=== PATIENT | female | born 1960 | race Caucasian/White ===

== ENCOUNTER → 2018-10-07 | Outpatient (CLI) | payer OTHER ==
[~2018-10-07] MED LIST: ASPIRIN EC81 MG PO; FLUOXETINE HCL20 M1 PO; LEVOTHROXINE PO; LISINOPRIL10 MG PO; METFORMIN HCL500 MG PO; PHILLIPS STOOL SOFT; [UNRECOGNIZED DRUG - OTHER]; percocet
== END ==
LOC: MAMMO 09:36
PROVIDERS: ATTEND Internal Medicine
DX: Z12.31 Encounter for screening mammogram for malignant neoplasm of breast (principal)
CPT/HCPCS: 77067

== ENCOUNTER → 2020-02-29 | Outpatient (CLI) | payer OTHER ==
--- NOTE | 2020-02-29 13:41 | Diagnostic Imaging Report ---
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 DISCUSSION: Sacrum is partially obscured by overlying stool/bowel gas on AP view which partially limits evaluation. Five nonrib-bearing lumbar type vertebral bodies are identified. No displaced fractures or acute osseous abnormalities visualized given exam limitations. Lumbar vertebral body heights are well preserved. No joint malalignment or dislocation. Normal lumbar lordosis without subluxation/spondylolisthesis. Mild multilevel degenerative disc changes. Mild facet arthropathy at L4-L5 and L5-S1. 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 Subtle vascular calcifications. Scattered surgical clips in the right upper and left mid abdominal quadrants. IMPRESSION: 1. No acute osseous abnormality given exam limitations. 2. Mild multilevel degenerative disc changes with mild facet arthropathy at the inferior lumbar spine. 3. 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 Signed by: Dr. Low Lam M.D. on 02/29/2020 1:38 PM
== END ==
LOC: RAD 12:22
PROVIDERS: ATTEND Internal Medicine
DX: M47.816 Spondylosis without myelopathy or radiculopathy, lumbar region (principal)
CPT/HCPCS: 72110; 72220